=== PATIENT | male | born 1950 | race Asian ===

== ENCOUNTER 2018-09-29 16:50 | Emergency (ER) | payer OTHER ==
[~2018-09-29] VITALS: Ht 175.3 cm; Wt 76.2 kg
[2018-09-29 17:10] VITALS: BP_SYST 136
[2018-09-29] MEDS ORDERED: KETOROLAC TROMETHAMINE 30 MG VIAL IVP ONE (17:45)
[2018-09-29] MEDS ORDERED: KETOROLAC TROMETHAMINE 30 MG VIAL IM ONE ×2 (18:00→18:30)
[2018-09-29] MEDS ORDERED: KETOROLAC TROMETHAMINE 30 MG VIAL ONE (18:15)
[2018-09-29 18:19] LABS: CALCIUM 8.9 mg/dL (8.4-11.0); CREATININE 0.81 mg/dL (0.55-1.30); POTASSIUM 4.3 mmol/L (3.5-5.1)
[2018-09-29 18:21] LABS: BASOPHILS % (AUTO) 0.7 % (0.0-2.0); EOSINOPHILS # (AUTO) 0.3 K/uL (0.0-0.4); EOSINOPHILS % (AUTO) 4.5 % (0.0-4.0); HEMATOCRIT 47.5 % (36-54); HEMOGLOBIN 15.6 g/dL (14.0-18.0); LYMPHOCYTES % (AUTO) 16.2 % (20.5-51.5); MEAN CORPUSCULAR HEMOGLOBIN 27 pg (27-31); MEAN CORPUSCULAR HGB CONC 33 % (32-36); MEAN CORPUSCULAR VOLUME 84 fL (79.0-98.0); MONOCYTES # (AUTO) 0.4 K/uL (0.0-1.0); MONOCYTES % (AUTO) 6.5 % (1.7-9.3); NEUTROPHILS # (AUTO) 4.3 K/uL (1.8-7.7); NEUTROPHILS % (AUTO) 72.1 % (40.0-70.0); PLATELET COUNT (AUTO) 241 K/uL (130-430); RED BLOOD CELL COUNT(AUTO) 5.69 MIL/uL (4.2-6.2); RED CELL DISTRIBUTION WIDTH 13.2 % (9.0-15.0)
[2018-09-29 18:25] LABS: ALBUMIN 3.3 g/dL (3.4-4.8); TOTAL BILIRUBIN 0.6 mg/dL (0.0-1.0)
[2018-09-29 19:04] VITALS: BP_SYST 131
== END 2018-09-29 19:02 | disposition home or self-care (01) ==
LOC: SED 16:50
DX: M19.042 Primary osteoarthritis, left hand (principal); R68.84 Jaw pain; R03.0 Elevated blood-pressure reading, without diagnosis of hypertension; Z88.0 Allergy status to penicillin
CPT/HCPCS: 36415; 73130; 80053; 82150; 83605; 83690; 85025; 87040; 96372; 99284; J1885

== ENCOUNTER 2019-01-20 21:27 | Emergency (ER) | payer OTHER ==
[~2019-01-20] VITALS: Ht 175.3 cm; Wt 76.2 kg
[2019-01-20 21:44] VITALS: BP_SYST 126
--- NOTE | 2019-01-20 21:51 | NUR ---
Patient triaged and placed in waiting room. VSS and patient appears in no acute distress at this time. Accompanied by son, awaiting available bed, and MD notified of need for MSE.
--- NOTE | 2019-01-20 23:06 | NUR ---
Patient to ER bed 03 to gown for evaluation. Side rails up. Report given to Antoinette ROSENBERG.
--- NOTE | 2019-01-20 23:10 | NUR ---
Pt came to the ED with son for vomiting and diarrhea assoicated with ABD pain and bilateral leg spasms since 12:00 today. Reports having 3 episodes of vomiting and 2 episodes of diarrhea. Denies taking medication for symptons. Denies SOB or chest pain. No other injuries/complaints noted. Will cont. to monitor.
[2019-01-20] MEDS ORDERED: NACL 0.9% 1,000 ML IV ONE (23:21)
--- NOTE | 2019-01-20 23:25 | NUR ---
ER at bedside examining patient.
[2019-01-21 00:25] LABS: BASOPHILS # (AUTO) 0.1 K/uL (0.0-0.2); BASOPHILS % (AUTO) 0.5 % (0.0-2.0); EOSINOPHILS # (AUTO) 0.1 K/uL (0.0-0.4); EOSINOPHILS % (AUTO) 0.6 % (0.0-4.0); HEMATOCRIT 46.8 % (36-54); HEMOGLOBIN 15.4 g/dL (14.0-18.0); LYMPHOCYTES # (AUTO) 0.4 K/uL (1.0-5.5); LYMPHOCYTES % (AUTO) 3.7 % (20.5-51.5); MEAN CORPUSCULAR HEMOGLOBIN 28 pg (27-31); MEAN CORPUSCULAR HGB CONC 33 % (32-36); MEAN CORPUSCULAR VOLUME 84 fL (79.0-98.0); MONOCYTES # (AUTO) 0.7 K/uL (0.0-1.0); MONOCYTES % (AUTO) 6.9 % (1.7-9.3); NEUTROPHILS # (AUTO) 8.8 K/uL (1.8-7.7); NEUTROPHILS % (AUTO) 88.3 % (40.0-70.0); PLATELET COUNT (AUTO) 217 K/uL (130-430); RED BLOOD CELL COUNT(AUTO) 5.58 MIL/uL (4.2-6.2); RED CELL DISTRIBUTION WIDTH 15.2 % (9.0-15.0)
[2019-01-21 00:26] LABS: CALCIUM 8.5 mg/dL (8.4-11.0); CREATININE 0.74 mg/dL (0.55-1.30); POTASSIUM 4.1 mmol/L (3.5-5.1)
--- NOTE | 2019-01-21 00:30 | NUR ---
Pt resting comfortably in bed. No signs of acute distress. Will cont. to monitor.
[2019-01-21 00:31] LABS: ALBUMIN 3.1 g/dL (3.4-4.8); INR 1.1 (0.80-1.20); PROTHROMBIN TIME 11.1 SECS (9.5-12.5)
[2019-01-21 00:42] LABS: BILIRUBIN,URINE NEGATIVE (NEGATIVE); BLOOD, URINE NEGATIVE (NEGATIVE); CLARITY/URINE CLEAR (CLEAR); COLOR,URINE YELLOW (YELLOW); GLUCOSE,URINE NEGATIVE (NEGATIVE); KETONES,URINE NEGATIVE (NEGATIVE); LEUKOCYTE ESTERASE ,URINE NEGATIVE (NEGATIVE); NITRITE, URINE NEGATIVE (NEGATIVE); PROTEIN URINE NEGATIVE (NEGATIVE); UROBILINOGEN,URINE 0.2 (0.2-1.0)
[2019-01-21] MEDS ORDERED: NACL 0.9% 1,000 ML IV ONE (01:00)
[2019-01-21] MEDS ORDERED: KETOROLAC TROMETHAMINE 30 MG VIAL IVP ONE (01:00)
[2019-01-21] MEDS ORDERED: METHOCARBAMOL 1000 MG/10 ML VIAL IVP ONE (01:00)
--- NOTE | 2019-01-21 01:30 | NUR ---
Pt resting comfortably in bed. No signs of acute distress. Will cont. to monitor.
[2019-01-21 02:39] VITALS: BP_SYST 126
--- NOTE | 2019-01-21 02:39 | NUR ---
Patient given written and verbal discharge instructions and verbalizes understanding. ER MD Dr. Davidson discussed with patient the results and treatment provided. Patient in stable condition. ID arm band removed. IV catheter removed intact and dressing applied, no active bleeding. Rx of ibuprofen and methocarbamol given. Patient educated on pain management and to follow up with PMD. Pain Scale 0/10. Opportunity for questions provided and answered. Medication side effect fact sheet provided.
== END 2019-01-21 02:39 | disposition home or self-care (01) ==
LOC: SED 21:27
DX: K52.9 Noninfective gastroenteritis and colitis, unspecified (principal); R25.2 Cramp and spasm; R03.0 Elevated blood-pressure reading, without diagnosis of hypertension
CPT/HCPCS: 36415; 80053; 81003; 82150; 83690; 85025; 85610; 96361; 96374; 96375; 99283; J1885; J2800; J7030